=== PATIENT | female | born 1980 | race Caucasian/White ===

== ENCOUNTER 2017-01-06 10:51 | Emergency (ER) | payer OTHER ==
[2017-01-06 11:35] VITALS: BP 124/86
--- NOTE | 2017-01-06 11:49 | UC ---
Lower Extremity/Ankle HPI - HPI Summary HPI Summary: 36 Y/O female C/O pain over R ankle x 2 days. States on hurts when touched or if pressure is placed on area. States noticed small amount of swelling / pustule over ankle.Denies fever / chills. - History of Current Complaint Chief Complaint: UCSkin Stated Complaint: RIGHT ANKLE PAIN Hx Obtained From: Patient Hx Last Menstrual Period: unknown ?: No Onset/Duration: Sudden Onset Severity Initially: Mild Severity Currently: Mild Pain Intensity: 4 Pain Scale Used: 0-10 Numeric Aggravating Factor(s): Other - Only hurts when touched. Alleviating Factor(s): Rest, Nothing Able to Bear Weight: Yes - Risk Factors Gout Risk Factors: Negative DVT Risk Factors: Negative Septic Arthritis Risk Factor: Negative - Allergies/Home Medications Allergies/Adverse Reactions: Allergies Allergy/AdvReac Type Severity Reaction Status Date / Time No Known Allergies Allergy Verified 01/06/17 11:26 Home Medications: Home Medications Sulfamethox/Trimethoprim DS* [Bactrim DS 800/160 TAB*] 1 tab PO BID 01/06/17 [ History Confirmed 01/06/17] PMH/Surg Hx/FS Hx/Imm Hx Previously Healthy: Yes Endocrine History Of: Denies: Diabetes, Thyroid Disease Cardiovascular History Of: Denies: Cardiac Disorders, Hypertension Respiratory History Of: Denies: COPD, Asthma GI/ History Of: Denies: Ulcer - Surgical History Surgical History: Yes Surgery Procedure, Year, and Place: t/a 2008 - Family History Known Family History: Positive: None - Social History Alcohol Use: Weekly Alcohol Amount: weekends Substance Use Type: None Smoking Status (MU): Never Smoked Tobacco Review of Systems Constitutional: Negative Skin: Other Eyes: Negative ENT: Negative Respiratory: Negative Cardiovascular: Negative Gastrointestinal: Negative Genitourinary: Negative Motor: Negative Neurovascular: Negative Musculoskeletal: Negative Neurological: Negative Psychological: Negative All Other Systems Reviewed And Are Negative: Yes Physical Exam Triage Information Reviewed: Yes Appearance: Well-Appearing Vital Signs: Initial Vital Signs Temp 98 F 01/06/17 11:29 Pulse 95 01/06/17 11:29 Resp 16 01/06/17 11:29 BP 124/86 01/06/17 11:29 Pulse Ox 98 01/06/17 11:29 Vital Signs Reviewed: Yes Eye Exam: Normal Eyes: Positive: Conjunctiva Clear ENT Exam: Normal ENT: Positive: Normal ENT inspection Dental Exam: Normal Neck exam: Normal Neck: Positive: Supple Respiratory Exam: Normal Respiratory: Positive: Lungs clear Cardiovascular Exam: Normal Cardiovascular: Positive: RRR Abdominal Exam: Normal Abdomen Description: Positive: Nontender Bowel Sounds: Positive: Present Musculoskeletal Exam: Normal Musculoskeletal: Positive: Strength Intact Neurological Exam: Normal Neurological: Positive: Alert Psychological Exam: Normal Skin Exam: Normal Lower Extremity Course/Dx - Differential Dx/Diagnosis Differential Diagnosis/HQI/PQRI: Infection Provider Diagnoses: Pustule, superficial skin infection. Discharge - Discharge Plan Condition: Stable Disposition: HOME Patient Education Materials: Abscess (ED) Additional Instructions: Place warm compresses over area every few hours. If area opens up allow to drain and cover with clean dry dressing. For fever, chills or if swelling / pain worsens may return to walk in or consult primary medical provider.
== END 2017-01-06 12:36 | disposition home or self-care (01) ==
LOC: UCCORT 10:51
DX: L08.9 Local infection of the skin and subcutaneous tissue, unspecified (principal)
CPT/HCPCS: 99211; G0463

== ENCOUNTER 2017-01-09 09:48 | Emergency (ER) | payer OTHER ==
[2017-01-09 10:02] VITALS: BP 121/80
--- NOTE | 2017-01-09 10:26 | UC ---
Skin Complaint HPI - HPI Summary HPI Summary: Patient has developed a large red swollen area around the cuticle of the right thumb. She is currently on bactrim for a UTI takeing day 5 of treatment. - History of Current Complaint Chief Complaint: UCUpperExtremity Time Seen by Provider: 01/09/17 10:14 Stated Complaint: RIGHT THUMB COMPLAINT Hx Obtained From: Patient Hx Last Menstrual Period: unknown ?: No Onset/Duration: Sudden Onset, Lasting Days Skin Exposure Onset/Duration: Days Ago Timing: Constant Onset Severity: Moderate Current Severity: Severe Location: Discrete, Hand (Right) Character: Swelling, Pain, Redness Aggravating: Nothing Alleviating: Nothing - Allergy/Home Medications Allergies/Adverse Reactions: Allergies Allergy/AdvReac Type Severity Reaction Status Date / Time No Known Allergies Allergy Verified 01/09/17 10:02 Review of Systems Constitutional: Negative Skin: Bruising, Other - redness and swelling Eyes: Negative ENT: Negative Respiratory: Negative Cardiovascular: Negative Gastrointestinal: Negative Genitourinary: Negative Motor: Negative Neurovascular: Negative Musculoskeletal: Negative Neurological: Negative Psychological: Negative All Other Systems Reviewed And Are Negative: Yes PMH/Surg Hx/FS Hx/Imm Hx Previously Healthy: Yes Endocrine History Of: Denies: Diabetes, Thyroid Disease Cardiovascular History Of: Denies: Cardiac Disorders, Hypertension Respiratory History Of: Denies: COPD, Asthma GI/ History Of: Denies: Ulcer - Surgical History Surgical History: Yes Surgery Procedure, Year, and Place: t/a 2008 - Family History Known Family History: Positive: None Negative: Cardiac Disease, Hypertension - Social History Alcohol Use: Weekly Alcohol Amount: weekends Substance Use Type: None Smoking Status (MU): Never Smoked Tobacco Physical Exam Triage Information Reviewed: Yes Appearance: Well-Appearing, Well-Nourished, Pain Distress Vital Signs: Initial Vital Signs Temp 99.4 F 01/09/17 09:59 Pulse 104 01/09/17 09:59 Resp 17 01/09/17 09:59 BP 121/80 01/09/17 09:59 Pulse Ox 97 01/09/17 09:59 Vital Signs Reviewed: Yes Eye Exam: Normal Eyes: Positive: Conjunctiva Clear ENT Exam: Normal ENT: Positive: Normal ENT inspection, Hearing grossly normal, Pharynx normal, TMs normal Dental Exam: Normal Neck exam: Normal Neck: Positive: Supple, Nontender, No Lymphadenopathy Respiratory Exam: Normal Respiratory: Positive: Chest non-tender, Lungs clear, Normal breath sounds Cardiovascular Exam: Normal Cardiovascular: Positive: RRR, No Murmur, Pulses Normal Abdominal Exam: Normal Abdomen Description: Positive: Nontender, No Organomegaly, Soft Bowel Sounds: Positive: Present Musculoskeletal Exam: Normal Musculoskeletal: Positive: Strength Intact, ROM Intact, No Edema Neurological Exam: Normal Neurological: Positive: Alert, Muscle Tone Normal Psychological Exam: Normal Skin: Positive: Other - red, swollen cuticle around the right thumb. scab noted where it was previously draining, no purulence noted, no pustules Course/Dx - Course Course Of Treatment: hx obtained, exam performed, meds reviewed, treated with paraonychia with augmentin. Educated on use of ABX and the need to supplement with probiotics due to frequent use of abx. - Differential Diagnoses - Skin Complaint Differential Diagnoses: Abscess, Cellulitis, Contact Dermatitis, Lymphangitis, MRSA - Diagnoses Provider Diagnoses: paronychia Discharge - Discharge Plan Condition: Stable Disposition: HOME Patient Education Materials: [place]oronald (ED) Additional Instructions: I am prescribeing a new antibiotic to treat the infection in your thumb. I recommend that you start a good probiotic due to the frequency of antibiotics lately. They will help prevent gastrointestinal side effects. I recommend warm soaks of the finger 4-5 times a day to help with healing.
== END 2017-01-09 10:30 | disposition home or self-care (01) ==
LOC: UCCORT 09:48
DX: L03.011 Cellulitis of right finger (principal); N39.0 Urinary tract infection, site not specified
CPT/HCPCS: 99212; G0463

== ENCOUNTER 2017-03-23 10:37 | Emergency (ER) | payer OTHER ==
[2017-03-23 11:02] VITALS: BP 128/82
--- NOTE | 2017-03-23 11:31 | UC ---
Skin Complaint HPI - HPI Summary HPI Summary: patient has 2 bug bites on her right leg that are red and raised, starting to look infectied. she thinks they were mosquito bites - History of Current Complaint Chief Complaint: UCSkin Time Seen by Provider: 03/23/17 11:19 Stated Complaint: INSECT BITE Hx Obtained From: Patient Hx Last Menstrual Period: unknown, IUD ?: No Onset/Duration: Sudden Onset, Lasting Days Skin Exposure Onset/Duration: Days Ago Timing: Constant Onset Severity: Mild Current Severity: Moderate Location: Discrete Character: Swelling, Redness - Allergy/Home Medications Allergies/Adverse Reactions: Allergies Allergy/AdvReac Type Severity Reaction Status Date / Time No Known Allergies Allergy Verified 03/23/17 11:02 Review of Systems Constitutional: Negative Skin: Other - 2 bites that are red and ulcerated Eyes: Negative ENT: Negative Respiratory: Negative Cardiovascular: Negative Gastrointestinal: Negative Genitourinary: Negative Motor: Negative Neurovascular: Negative Musculoskeletal: Negative Neurological: Negative Psychological: Negative All Other Systems Reviewed And Are Negative: Yes PMH/Surg Hx/FS Hx/Imm Hx Previously Healthy: Yes Endocrine History Of: Denies: Diabetes, Thyroid Disease Cardiovascular History Of: Denies: Cardiac Disorders, Hypertension Respiratory History Of: Denies: COPD, Asthma GI/ History Of: Denies: Ulcer - Surgical History Surgical History: Yes Surgery Procedure, Year, and Place: t/a 2008 - Family History Known Family History: Positive: None Negative: Cardiac Disease, Hypertension - Social History Alcohol Use: Weekly Alcohol Amount: weekends Substance Use Type: None Smoking Status (MU): Never Smoked Tobacco Physical Exam Triage Information Reviewed: Yes Appearance: Well-Appearing, Well-Nourished, Pain Distress Vital Signs: Initial Vital Signs Temp 97.5 F 03/23/17 10:55 Pulse 70 03/23/17 10:55 Resp 16 03/23/17 10:55 BP 128/82 03/23/17 10:55 Pulse Ox 100 03/23/17 10:55 Vital Signs Reviewed: Yes Eye Exam: Normal Eyes: Positive: Conjunctiva Clear ENT Exam: Normal Dental Exam: Normal Neck exam: Normal Neck: Positive: Supple, Nontender, No Lymphadenopathy Respiratory Exam: Normal Respiratory: Positive: Chest non-tender, Lungs clear, Normal breath sounds Cardiovascular Exam: Normal Cardiovascular: Positive: RRR, No Murmur, Pulses Normal Abdominal Exam: Normal Abdomen Description: Positive: Nontender, No Organomegaly, Soft Bowel Sounds: Positive: Present Musculoskeletal Exam: Normal Musculoskeletal: Positive: Strength Intact, ROM Intact, No Edema Neurological Exam: Normal Neurological: Positive: Alert, Muscle Tone Normal Psychological Exam: Normal Skin: Positive: Other - 2 ulcerated bug bites with erythema around the wounds, slightly elevated Course/Dx - Course Course Of Treatment: hx obtained, exam performed, meds reviewed, and prescribed. - Differential Diagnoses - Skin Complaint Differential Diagnoses: Abscess, Cellulitis, Contact Dermatitis, Scabies, Tick Born Illness - Diagnoses Provider Diagnoses: subcutaneous infection of bug bites Discharge - Discharge Plan Condition: Stable Disposition: HOME Patient Education Materials: Cellulitis (ED) Additional Instructions: 1. take the medication as prescribe.d 2. Increase your fluid intake 3. Apply warm compresses to area 4. follow up with any worsening symptoms
== END 2017-03-23 11:42 | disposition home or self-care (01) ==
LOC: UCCORT 10:37
DX: L08.89 Other specified local infections of the skin and subcutaneous tissue (principal)
CPT/HCPCS: 99212; G0463

== ENCOUNTER 2018-01-06 19:02 | Emergency (ER) | payer OTHER ==
[2018-01-06] MEDS ORDERED: Cephalexin CAP* 500 MG PO ONE (20:38)
[2018-01-06 20:39] VITALS: BP 126/83
--- NOTE | 2018-01-06 20:52 | UC ---
Skin Complaint HPI - HPI Summary HPI Summary: 37 yo female with the onset of right thumb pain and swelling around nail bed after trivial thumh injury Hx of early paronychia right thumb a yr ago no hx of MRSA - History of Current Complaint Chief Complaint: UCUpperExtremity Time Seen by Provider: 01/06/18 20:33 Stated Complaint: RIGHT THUMB COMPLAINT Hx Obtained From: Patient Hx Last Menstrual Period: due in about 1 week/on BCP Onset/Duration: Gradual Onset, Lasting Hours Skin Exposure Onset/Duration: Hours Ago Timing: Constant Onset Severity: Mild Current Severity: Mild Pain Intensity: 3 Pain Scale Used: 0-10 Numeric Location: Other - Right thumb Character: Swelling, Redness, Raised, Painful Aggravating Factor(s): Touch Alleviating Factor(s): Nothing Associated Signs & Symptoms: Positive: Tenderness Related History: Trauma - trivial - Allergy/Home Medications Allergies/Adverse Reactions: Allergies Allergy/AdvReac Type Severity Reaction Status Date / Time No Known Allergies Allergy Verified 01/06/18 20:17 Review of Systems Constitutional: Negative Skin: Negative Eyes: Negative ENT: Negative Respiratory: Negative Cardiovascular: Negative Gastrointestinal: Negative Genitourinary: Negative Motor: Negative Neurovascular: Negative Musculoskeletal: Negative Neurological: Negative Psychological: Negative Is Patient Immunocompromised?: No All Other Systems Reviewed And Are Negative: Yes PMH/Surg Hx/FS Hx/Imm Hx Previously Healthy: Yes - Surgical History Surgical History: Yes Surgery Procedure, Year, and Place: t/a 2008 - Family History Known Family History: Positive: None Negative: Cardiac Disease, Hypertension - Social History Alcohol Use: Weekly Alcohol Amount: weekends Substance Use Type: None Smoking Status (MU): Never Smoked Tobacco Physical Exam Triage Information Reviewed: Yes Appearance: Well-Appearing, No Pain Distress, Well-Nourished Vital Signs: Initial Vital Signs Temp 97.9 F 01/06/18 20:10 Pulse 84 01/06/18 20:10 Resp 16 01/06/18 20:10 BP 126/83 01/06/18 20:10 Pulse Ox 100 01/06/18 20:10 Vital Signs Reviewed: Yes Eyes: Positive: Conjunctiva Clear ENT: Positive: Hearing grossly normal. Negative: Muffled voice, Hoarse voice Neck: Positive: Supple, Nontender, No Lymphadenopathy Respiratory: Positive: Lungs clear, Normal breath sounds, No respiratory distress Cardiovascular: Positive: RRR, No Murmur Musculoskeletal: Positive: ROM Intact Neurological: Positive: Alert Psychological Exam: Normal Course/Dx - Course Course Of Treatment: aware of need to follow up if things worsen...she is aware that this may progress to a paronychia and may need an I&D - Diagnoses Provider Diagnoses: cellulits right thumb Discharge - Discharge Plan Condition: Stable Disposition: HOME Prescriptions: Cephalexin CAP* [Keflex CAP*] 500 mg PO QID #28 cap Patient Education Materials: Cellulitis (ED) Referrals: Migel Lee MD [Primary Care Provider] - 4 Days (if not better) Additional Instructions: warm soaks recheck for worsening symptoms Images Hands: 1 - red/swollen 2 - red/swollen, no pus
== END 2018-01-06 20:46 | disposition home or self-care (01) ==
LOC: UCCORT 19:02
DX: L03.011 Cellulitis of right finger (principal)
CPT/HCPCS: 99212; A9270-GY; G0463

== ENCOUNTER 2018-11-16 11:40 | Emergency (ER) | payer OTHER ==
--- NOTE | 2018-11-16 11:52 | UC ---
Upper Extremity HPI - HPI Summary HPI Summary: developed pain in the left thumb over the last several days. has history of paronychia in the past, from manipulating her cuticles - History of Current Complaint Stated Complaint: RT THUMB INFECTION Time Seen by Provider: 11/16/18 11:49 Hx Obtained From: Patient Hx Last Menstrual Period: due in about 1 week/on BCP Onset/Duration: Gradual Onset, Lasting Days Severity Initially: Moderate Location Of Pain: Is Discrete @ Character: Throbbing Aggravating Factor(s): Movement, Lifting, Flexion Alleviating Factor(s): Nothing - Allergies/Home Medications Allergies/Adverse Reactions: Allergies Allergy/AdvReac Type Severity Reaction Status Date / Time No Known Allergies Allergy Verified 11/16/18 11:51 Home Medications: Home Medications Ibuprofen TAB* [Motrin TAB* 800 MG] 800 mg PO Q8H PRN 11/16/18 [History Confirmed 11/16/18] PMH/Surg Hx/FS Hx/Imm Hx Previously Healthy: Yes - Surgical History Surgical History: Yes Surgery Procedure, Year, and Place: t/a 2008 - Family History Known Family History: Positive: None Negative: Cardiac Disease, Hypertension - Social History Alcohol Use: Weekly Alcohol Amount: weekends Substance Use Type: None Smoking Status (MU): Never Smoked Tobacco Review of Systems All Other Systems Reviewed And Are Negative: Yes Constitutional: Positive: Negative Skin: Positive: Negative Eyes: Positive: Negative ENT: Positive: Negative Respiratory: Positive: Negative Cardiovascular: Positive: Negative Gastrointestinal: Positive: Negative Physical Exam Triage Information Reviewed: Yes Appearance: Well-Appearing Vital Signs Reviewed: Yes Eye Exam: Normal ENT Exam: Normal ENT: Positive: Normal ENT inspection Respiratory Exam: Normal Musculoskeletal: Positive: Other: - swelling pain in the right thumb consistent with paronychia with associated erythema Skin: Positive: Other Procedures - Incision and Drainage Left Lateral Distal Finger Site: right thumb Anesthesia: Digital Instrument(s): Scalpel - after digital block under sterile conditions ,left thumb incision made in a circumferential manner around the cuticle with subsequent drainage of small amount of pus Upper Extremity Course/Dx - Differential Dx/Diagnosis Provider Diagnosis: Paronychia of right thumb Discharge - Sign-Out/Discharge Documenting (check all that apply): Patient Departure All imaging exams completed and their final reports reviewed: No Studies - Discharge Plan Condition: Good Disposition: HOME Patient Education Materials: Paronychia (ED) Referrals: Migel Lee MD [Primary Care Provider] - - Billing Disposition and Condition Condition: GOOD Disposition: Home
[2018-11-16 11:53] VITALS: BP 118/76
[2018-11-16] MEDS ORDERED: Lidocaine 1%* 5 ML VIAL INJ ONE (11:57)
[2018-11-16] MEDS ORDERED: Lidocaine 1%* 5 ML VIAL ONE (12:00)
== END 2018-11-16 12:32 | disposition home or self-care (01) ==
LOC: UCCORT 11:40
DX: L03.011 Cellulitis of right finger (principal)
CPT/HCPCS: 10060; 99211; G0463

== ENCOUNTER 2018-12-30 18:09 | Emergency (ER) | payer OTHER ==
[2018-12-30 19:17] VITALS: BP 130/83
--- NOTE | 2018-12-30 19:25 | UC ---
UC General HPI - HPI Summary HPI Summary: SATURDAY NOTED A TINY BLISTER ON R THUMB FROM BOWLING. SATURDAY, IT POPPED AND THE THUMB BEGAN TO TURN RED. THUMB IS NOW MORE RED AND SWOLLEN. NO LIMITED ROM, FEVER OR HX MRSA. NO JOINT PAIN. - History of Current Complaint Chief Complaint: Thanh Stated Complaint: POSSIBLE INFECTION RIGHT THUMB Time Seen by Provider: 12/30/18 19:09 Hx Obtained From: Patient Hx Last Menstrual Period: 12/04/18 Onset/Duration: Gradual Onset Timing: Constant Pain Intensity: 5 - Allergy/Home Medications Allergies/Adverse Reactions: Allergies Allergy/AdvReac Type Severity Reaction Status Date / Time No Known Allergies Allergy Verified 12/30/18 19:17 PMH/Surg Hx/FS Hx/Imm Hx GI/ History: Gastroesophageal Reflux - Surgical History Surgical History: Yes Surgery Procedure, Year, and Place: t/a 2008 - Family History Known Family History: Positive: None Negative: Cardiac Disease, Hypertension - Social History Alcohol Use: Weekly Alcohol Amount: weekends Substance Use Type: None Smoking Status (MU): Never Smoked Tobacco - Immunization History Vaccination Up to Date: Yes Review of Systems All Other Systems Reviewed And Are Negative: Yes Constitutional: Positive: Negative Skin: Positive: Rash Motor: Positive: Negative Musculoskeletal: Positive: Edema. Negative: Arthralgia, Decreased ROM Physical Exam Triage Information Reviewed: Yes Appearance: Well-Appearing Vital Signs: Initial Vital Signs Temp 97.7 F 12/30/18 19:13 Pulse 83 12/30/18 19:13 Resp 16 12/30/18 19:13 BP 130/83 12/30/18 19:13 Pulse Ox 100 12/30/18 19:13 Vital Signs Reviewed: Yes Eyes: Positive: Conjunctiva Clear ENT: Positive: Normal ENT inspection Neck: Positive: Supple, Nontender, No Lymphadenopathy Respiratory: Positive: Lungs clear, Normal breath sounds Cardiovascular: Positive: RRR, No Murmur Abdomen Description: Positive: Nontender Bowel Sounds: Positive: Present Musculoskeletal: Positive: Other: - HAS FULL S/V/M FUNCTION. REST OF HAND IS UNREMARKABLE.R HAND: SMALL ABRASION ON SIDE OF THUMB AT BLISTER SITE. THUMB HAS MILD ERYTHEMA AND SWELLING. THE DIGIT Neurological: Positive: Alert Psychological: Positive: Age Appropriate Behavior Skin Exam: Normal Course/Dx - Differential Dx - Multi-Symptom Differential Diagnoses: Other - NO CONCERN FOR COMPARTMENT SYNDROM, JOINT INFECTION OR FLEXOR TENOSYNOVITIS - Diagnoses Provider Diagnosis: Cellulitis of right hand Discharge - Sign-Out/Discharge Documenting (check all that apply): Patient Departure All imaging exams completed and their final reports reviewed: No Studies - Discharge Plan Condition: Stable Disposition: HOME Prescriptions: Cephalexin CAP* [Keflex CAP*] 500 mg PO TID 10 Days #30 cap Patient Education Materials: Cellulitis (DC) Referrals: Migel Lee MD [Primary Care Provider] - 3 Days - Billing Disposition and Condition Condition: STABLE Disposition: Home - Attestation Statements Provider Attestation: Per institutional requirements, I have reviewed the chart, however, I was not consulted specifically or made aware of this patient by the midlevel provider. I did not personally evaluate, interact with , or disposition this patient.
== END 2018-12-30 19:36 | disposition home or self-care (01) ==
LOC: UCCORT 18:09
DX: L03.011 Cellulitis of right finger (principal)
CPT/HCPCS: 99212; G0463